=== PATIENT | female | born 1990 | race Caucasian/White ===

== ENCOUNTER 2018-06-11 17:24 | Emergency (ER) | payer BC ==
[~2018-06-11] VITALS: Ht 180.3 cm; Wt 90.7 kg
[2018-06-11] MEDS ORDERED: PROZAC40 MG (18:14)
== END 2018-06-11 20:26 | disposition home or self-care (01) ==
LOC: ER 17:24
DX: L03.211 Cellulitis of face (principal)

== ENCOUNTER 2018-08-20 21:57 | Emergency (ER) | payer BC ==
[~2018-08-20] VITALS: Ht 180.3 cm; Wt 90.7 kg
[~2018-08-20 21:57] MED LIST: PROZAC40 MG
== END 2018-08-20 22:57 | disposition home or self-care (01) ==
LOC: ER 21:57
DX: L03.211 Cellulitis of face (principal)